=== PATIENT | male | born 1975 | race Caucasian/White ===

== ENCOUNTER 2018-11-18 09:51 | Emergency (ER) | payer OTHER ==
[~2018-11-18] VITALS: Ht 170.2 cm; Wt 68.3 kg
[2018-11-18 10:17] VITALS: Ht 170.2 cm; Wt 68.3 kg
[2018-11-18 11:30] LABS: BASOPHIL % 1.3 % (0-2); PLATELET COUNT 235 x10^3mcL (130-400); RED CELL DISTRIBUTION WIDTH 12.5 % (11.5-14.5)
[2018-11-18 11:41] LABS: CALCIUM 8.8 mg/dL (8.5-10.1); CARBON DIOXIDE 32.2 mmol/L (21-32); CHLORIDE SERUM 105 mmol/L (98-107); CREATININE SERUM 0.7 mg/dL (0.7-1.3); GFR1 > 60 mL/min; GLUCOSE SERUM 83 mg/dL (74-106); POTASSIUM SERUM 5.2 mmol/L (3.5-5.1); SODIUM SERUM 140 mmol/L (136-145)
[2018-11-18 11:46] LABS: ALKALINE PHOSPHATASE 83 U/L (46-116); ALT/SGPT 111 U/L (16-63); AST/SGOT 77 U/L (15-37); BILIRUBIN TOTAL 0.24 mg/dL (0.20-1.00); TOTAL PROTEIN, SERUM 7.1 g/dL (6.4-8.2)
[2018-11-18 11:58] LABS: ALBUMIN 3.3 g/dL (3.4-5.0)
[2018-11-18 12:24] VITALS: BP 119/80
== END 2018-11-18 12:15 | disposition home or self-care (01) ==
LOC: ED 09:51
PROVIDERS: Emergency Medicine
DX: M54.5 Low back pain (principal); Z88.1 Allergy status to other antibiotic agents; Z88.8 Allergy status to other drugs, medicaments and biological substances; Z86.19 Personal history of other infectious and parasitic diseases
CPT/HCPCS: 36415

== ENCOUNTER 2019-03-20 16:12 | Emergency (ER) | payer OTHER ==
[~2019-03-20] VITALS: Ht 170.2 cm; Wt 74.4 kg
[2019-03-20 16:36] VITALS: BP 145/81; Ht 170.2 cm; Wt 74.4 kg
== END 2019-03-20 20:24 | disposition home or self-care (01) ==
LOC: ED 16:12
DX: Z11.3 Encounter for screening for infections with a predominantly sexual mode of transmission (principal); F15.10 Other stimulant abuse, uncomplicated; Z88.1 Allergy status to other antibiotic agents; Z86.19 Personal history of other infectious and parasitic diseases
CPT/HCPCS: 87491; 87591; J0696